=== PATIENT | male | born 1980 | race Caucasian/White ===

== ENCOUNTER 2016-11-23 04:11 | Inpatient (IN) | payer OTHER ==
[2016-11-23] VITALS (7 sets, daily range): BP systolic 105–128; BP diastolic 69–77; PULSE 77–97; TEMP 36.8–37.2; O2SAT 94–97; Ht 172.7 cm; Wt 77.0 kg
[~2016-11-23] VITALS: Ht 172.7 cm; Wt 77.0 kg
[~2016-11-23 04:11] MED LIST: CYAN1DRO SC; FURO-85 PO; LACT10SO30 PO; MAGNTAB4 PO; SERT25TA PO; SPRN100 PO; THM100 PO; XFX550 PO
[2016-11-23] MEDS ORDERED: RIFA550T2 PO ×2 (05:04→05:09)
[2016-11-23] MEDS ORDERED: FURO-85 PO (05:07)
[2016-11-23 05:09] LABS: URINE APPEARANCE CLEAR (CLEAR); URINE BILIRUBIN NEG (NEG); URINE COLOR YELLOW; URINE NITRITE NEG (NEG); URINE PH 7.5 (4.5-7.5); URINE SPECIFIC GRAVITY 1.013 (1.000-1.030); UROBILINOGEN NEG (NEG)
[2016-11-23] MEDS ORDERED: SLWMEC PO (05:09)
[2016-11-23 05:18] LABS: MANUAL MICROSCOPIC REQUIRED? NO; REVIEW REQ? NO
[2016-11-23 05:28] LABS: BENZODIAZEPINE, URINE NEG (NEG); COCAINE,URINE NEG (NEG); PHENCYCLIDINE, URINE NEG (NEG)
[2016-11-23] MEDS ORDERED: LORAZEPAM 1 MG TAB SL STA (05:29)
[2016-11-23 05:50] LABS: BUN/CREATININE RATIO 10.7 (10-20); CALCIUM 8.1 mg/dl (8.5-10.1); CREATININE 0.8 mg/dl (0.60-1.40); POTASSIUM 2.6 mmol/L (3.5-5.1)
[2016-11-23 05:53] LABS: HEMATOCRIT 35.3 % (42-52); MEAN CELL VOLUME 102.6 fL (80-100); MEAN CORPUSCULAR HEMOGLOBIN 34.3 pg (25-34); MEAN CORPUSCULAR HGB CONC 33.4 g/dl (32-36); MEAN PLATELET VOLUME 11.1 fL (7.4-10.4); PLATELET COUNT 75 K/uL (130-400); RED BLOOD COUNT 3.44 M/uL (4.7-6.1); WHITE BLOOD COUNT 6.32 K/uL (4.8-10.8)
[2016-11-23 06:05] LABS: THYROID STIMULATING HORMONE 4.03 uIu/ml (0.300-4.500)
[2016-11-23] MEDS ORDERED: POTASSIUM CHLORIDE 10 MEQ / 100ML WTR IV STA ×2 (07:08)
[2016-11-23 07:11] LABS: INR 1.5 (0.9-1.1); PROTHROMBIN TIME (PATIENT) 16.1 SECONDS (9.0-12.0)
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
[2016-11-23] MEDS ORDERED: ONDANSETRON INJ 2 MG/ML 2 ML VIAL IV PRN (08:00)
[2016-11-23] MEDS ORDERED: NITROGLYCERIN 0.4 MG SL PER TAB CHARGE SL PRN (08:00)
[2016-11-23] MEDS ORDERED: LORAZEPAM 2 MG/ML 1 ML VIAL IV PRN (08:15)
[2016-11-23] MEDS ORDERED: GABAPENTIN 600 MG TAB PO SCH (08:15)
--- NOTE | 2016-11-23 08:16 | History and Physical ---
History & Physical Date & Time of Service: Nov 23, 2016 at 08:16 Chief Complaint: Mental Health Eval Primary Care Physician: No Doctor, Assigned History of Present Illness Source: patient, hospital records This is a 36 yo M with hx of alcohol abuse , alcoholic liver disease , depression brought to ER by Police as made suicidal remarks -sent threatening text message to Girl Friend , messaged that he would like to kill himself , sent her picture of a knife pt has been drinking heavily past few day In the ER very few information could be obtained form him was very groggy , does not recall of making suicidal remarks does not remember when is the last time he had a drink pt alcohol level > 170 hypokalemic psych eval requested for depression /suicidal ideation Past Medical/Surgical History Medical Problems: (1) Alcohol abuse Status: Chronic (2) Alcohol abuse Status: Chronic (3) Anxiety Status: Chronic (4) Cirrhosis Status: Chronic (5) Depression Status: Chronic (6) Thrombocytopenia Status: Chronic (7) Tobacco abuse Status: Chronic Surgical Problems: (1) H/O wisdom tooth extraction Status: Resolved Family History Cancer Diabetes mellitus FH: kidney disease Heart disease Hypertension Social History Smoking Status: Current Every Day Smoker Drug Use: none Marital Status: single Housing status: other Occupational Status: unemployed Immunizations History of Influenza Vaccine: Unknown History of Tetanus Vaccine?: Unknown History of Pneumococcal: Unknown History of Hepatitis B Vaccine: Unknown Multi-Drug Resistant Organisms History of MDRO: Yes Type of MDRO: MRSA Allergies Coded Allergies: No Known Allergies (Unverified , 11/23/16) Home Medications Scheduled Furosemide (Lasix), 20 MG PO DAILY Magnesium Chloride (Slow-Mag Tab), 2 TABS PO DAILY Rifaximin (Xifaxan), 550 MG PO BID Review of Systems unable to obtain as pt kept dozing off Physical Exam Vital Signs Date Time Temp Pulse Resp B/P (MAP) Pulse Ox O2 Delivery O2 Flow Rate FiO2 11/23/16 08:01 90 16 102/68 94 Room Air 11/23/16 07:02 82 11/23/16 06:49 87 16 131/85 95 Room Air 11/23/16 05:25 78 20 110/68 98 Room Air 11/23/16 04:16 36.6 96 18 127/87 98 Room Air General Appearance: + pertinent finding (lethergic ) Eyes: + abnormal sclerae exam (icteric ) Respiratory/Chest: lungs clear, normal breath sounds, no respiratory distress Cardiovascular: + tachycardia Abdomen/GI: soft, + distended (+ ascities ) Extremities/Musculoskelatal: no pedal edema Neurologic/Psych: + disoriented Diagnostics Laboratory Results Results Past 24 Hours Test 11/23/16 04:20 11/23/16 05:05 11/23/16 07:59 Range/Units Urine Color YELLOW Urine Appearance CLEAR CLEAR Urine pH 7.5 4.5-7.5 Urine Specific [place] 1.013 1.000-1.030 Urine Protein NEG NEG Urine Glucose (UA) NEG NEG Urine Ketones NEG NEG Urine Occult Blood NEG NEG Urine Nitrite NEG NEG Urine Bilirubin NEG NEG Urine Urobilinogen NEG NEG Urine Leukocyte Esterase NEG NEG Urine Opiates Screen NEG NEG Urine Methadone, Qualitative NEG NEG Urine Barbiturates NEG NEG Urine Phencyclidine (PCP) Level NEG NEG Ur Amphetamine/Methamphetamine NEG NEG MDMA (Ecstasy) Screen NEG NEG Urine Benzodiazepines Screen NEG NEG Urine Cocaine Metabolite NEG NEG Urine Marijuana (THC) NEG NEG White Blood Count 6.32 4.8-10.8 K/uL Red Blood Count 3.44 4.7-6.1 M/uL Hemoglobin 11.8 14.0-18.0 g/dL Hematocrit 35.3 42-52 % Mean Corpuscular Volume 102.6 80-100 fL Mean Corpuscular Hemoglobin 34.3 25-34 pg Mean Corpuscular Hemoglobin Concent 33.4 32-36 g/dl RDW Standard Deviation 71.8 36.4-46.3 fL RDW Coefficient of Variation 19.2 11.5-14.5 % Platelet Count 75 130-400 K/uL Mean Platelet Volume 11.1 7.4-10.4 fL Prothrombin Time 16.1 9.0-12.0 SECONDS Prothromb Time International Ratio 1.5 0.9-1.1 Sodium Level 143 136-145 mmol/L Potassium Level 2.6 3.5-5.1 mmol/L Chloride Level 111 98-107 mmol/L Carbon Dioxide Level 25 21-32 mmol/L Anion Gap 7.0 3-11 mmol/L Blood Urea Nitrogen 9 7-18 mg/dl Creatinine 0.80 0.60-1.40 mg/dl Est Creatinine Clear Calc Drug Dose 123.5 ml/min Estimated GFR () 133.2 Estimated GFR (Non- 114.9 BUN/Creatinine Ratio 10.7 10-20 Random Glucose 103 70-99 mg/dl Calcium Level 8.1 8.5-10.1 mg/dl Magnesium Level 2.2 1.8-2.4 mg/dl Total Bilirubin 5.5 0.2-1 mg/dl Direct Bilirubin 4.3 0-0.2 mg/dl Aspartate Amino Transf (AST/SGOT) 90 15-37 U/L Alanine Aminotransferase (ALT/SGPT) 36 12-78 U/L Alkaline Phosphatase 252 45-117 U/L Total Protein 7.5 6.4-8.2 gm/dl Albumin 2.5 3.4-5.0 gm/dl Thyroid Stimulating Hormone (TSH) 4.030 0.300-4.500 uIu/ml Ethyl Alcohol mg/dL 172.0 0-3 mg/dl Diagnostic Radiology liver USG: IMPRESSION: 1. Cirrhosis. No hepatic lesions identified although sensitivity diminished given suboptimal penetration. 2. Reversal of flow within the main, left and right portal veins as well as the splenic vein consistent with portal hypertension. 3. Cholelithiasis. Borderline gallbladder wall thickening, a nonspecific finding. 4. Trace abdominal ascites. Impression Assessment and Plan ETOH ABUSE /INTOXICATION : presented with ETOH level > 170 reports of heavy drinking hx of long standing alcohol and poly substance abuse admit to tele ordered for thiamine , folic acid , banana bag cont with Neurontin /Ativan per ETOH withdrawal protocol monitor for severe withdrawal /DT SUICIDAL IDEATION /DEPRESSION : pt will put on q 15 min check with suicide precaution at present denies of any suicidal ideation denies of making threats to commit suicide to her girl friend Psych eval requested HYPOKALEMIA : ordered for replacement no reports for Vomiting or diarrhea ALCOHOLIC LIVER DISEASE no evidence of hepatic encephalopsy lethargy /increased somnolence possible due to alcohol intoxication cont on Rifaximin , Lasix ordered for lactulose GI eval requested FULL CODE DVT PROPHYLAXIS : scd and teds ambulate DISPOSITION : to be determined Level of Care Telemetry Resuscitation Status FULL RESUSCITATION VTE Prophylaxis VTE Risk Assessment Done? Y/N: Yes Risk Level: Moderate Given or contraindicated: T.E.D. Stockings, SCD's
[2016-11-23] MEDS ORDERED: THIAMINE HCL 100 MG TAB PO STA (09:53)
[2016-11-23] MEDS ORDERED: MULTI-VITAMIN INFUSION INJ 10 ML, THIAMINE HCL INJ 100 MG, FoLIC ACID INJ 1 MG in SODIU... IV ONE (10:00)
[2016-11-23] MEDS ORDERED: GABAPENTIN 1200MG LOADING DOSE PO SCH (10:00)
[2016-11-23] MEDS: LACTULOSE SYRUP 30 GM/45 ML UDP PO SCH ×3 (11:09→22:04)
[2016-11-23] MEDS: MAGNESIUM CHLORIDE 64MG DELAYED REL TAB PO SCH (11:09)
[2016-11-23] MEDS: RIFAXIMIN TAB 550 MG TAB PO SCH ×2 (11:09→22:00)
[2016-11-23] MEDS: FUROSEMIDE 20 MG TAB PO SCH (11:10)
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
--- NOTE | 2016-11-23 12:27 | DIAGNOSTIC IMAGING REPORT ---
ABDOMINAL ULTRASOUND, RIGHT UPPER QUADRANT HISTORY: Elevated bilirubin. COMPARISON: MRI of the liver October 25, 2015. FINDINGS: Coarsening of hepatic echotexture and nodularity of the liver surface is indicative of cirrhosis. No hepatic lesions are identified by sonography although sensitivity is diminished given suboptimal penetration. The pancreas is largely obscured. There is no biliary ductal dilatation. Note is made of reversal of flow within the main, left and right portal veins. There is also reversal flow within the splenic vein. There are gallstones within the gallbladder. Trace upper abdominal is noted. There is borderline gallbladder wall thickening. There is no right hydronephrosis. IMPRESSION: 1. Cirrhosis. No hepatic lesions identified although sensitivity diminished given suboptimal penetration. 2. Reversal of flow within the main, left and right portal veins as well as the splenic vein consistent with portal hypertension. 3. Cholelithiasis. Borderline gallbladder wall thickening, a nonspecific finding. 4. Trace abdominal ascites. Electronically signed by: Bryn Root M.D. 11/23/2016 12:26 PM Dictated Date/Time: 11/23/2016 12:22 PM
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
[2016-11-23 14:36] LABS: BUN/CREATININE RATIO 8.2 (10-20); CREATININE 0.8 mg/dl (0.60-1.40); POTASSIUM 2.7 mmol/L (3.5-5.1)
[2016-11-23] MEDS: GABAPENTIN 600MG Q6H DOSE PO SCH ×2 (16:31→22:01)
[2016-11-23] MEDS ORDERED: POTASSIUM CHLORIDE 10 MEQ TABCR PO STA (17:41)
[2016-11-23] MEDS: POTASSIUM CHLR 10 MEQ / WTR 10 MEQ in PREMIXED WATER 100 ML IV SCH ×2 (18:19→19:33)
[2016-11-23] MEDS: CARVEDILOL 6.25 MG TAB PO SCH (22:01)
[2016-11-23 23:20] LABS: BUN/CREATININE RATIO 6.8 (10-20); CALCIUM 7.9 mg/dl (8.5-10.1); CREATININE 1.1 mg/dl (0.60-1.40)
[2016-11-24] MEDS ORDERED: POTASSIUM CHLORIDE 20 MEQ TABCR PO STA ×2 (00:04→11:45)
[2016-11-24 00:09] VITALS: BP 126/83; PULSE 81; TEMP 37.2; O2SAT 98
[2016-11-24 04:00] VITALS: BP 116/75; PULSE 84; TEMP 37.3; O2SAT 95
[2016-11-24] MEDS: LEVOTHYROXINE 75 MCG TAB PO SCH (05:47)
[2016-11-24] MEDS: GABAPENTIN 600MG Q8H DOSE PO SCH ×3 (05:47→21:57)
[2016-11-24 07:24] VITALS: BP 116/74; PULSE 82; TEMP 37.3; O2SAT 95
[2016-11-24 07:41] LABS: HEMATOCRIT 32.6 % (42-52); MEAN CELL VOLUME 103.2 fL (80-100); MEAN CORPUSCULAR HEMOGLOBIN 35.1 pg (25-34); RED BLOOD COUNT 3.16 M/uL (4.7-6.1); WHITE BLOOD COUNT 5.75 K/uL (4.8-10.8)
[2016-11-24 07:42] LABS: MEAN PLATELET VOLUME 10.8 fL (7.4-10.4); PLATELET COUNT 59 K/uL (130-400)
[2016-11-24 07:51] LABS: INR 1.5 (0.9-1.1); PROTHROMBIN TIME (PATIENT) 16.5 SECONDS (9.0-12.0)
[2016-11-24 08:14] LABS: BUN/CREATININE RATIO 7.8 (10-20); CALCIUM 7.9 mg/dl (8.5-10.1); CREATININE 0.91 mg/dl (0.60-1.40); MAGNESIUM 1.8 mg/dl (1.8-2.4); POTASSIUM 2.9 mmol/L (3.5-5.1)
[2016-11-24] MEDS: THIAMINE HCL 100 MG TAB PO SCH (08:58)
[2016-11-24] MEDS: POTASSIUM CHLORIDE 20 MEQ TABCR PO SCH (08:58)
[2016-11-24] MEDS: LACTULOSE SYRUP 30 GM/45 ML UDP PO SCH ×3 (08:58→21:56)
[2016-11-24] MEDS: RIFAXIMIN TAB 550 MG TAB PO SCH ×2 (08:58→21:57)
[2016-11-24] MEDS: CARVEDILOL 6.25 MG TAB PO SCH ×2 (08:58→21:58)
[2016-11-24] MEDS: MAGNESIUM CHLORIDE 64MG DELAYED REL TAB PO SCH (10:15)
[2016-11-24] MEDS: FUROSEMIDE 20 MG TAB PO SCH (10:15)
[2016-11-24 11:36] VITALS: BP 109/71; PULSE 76; TEMP 37.1; O2SAT 94
[2016-11-24] MEDS: POTASSIUM CHLR 10 MEQ / WTR 10 MEQ in PREMIXED WATER 100 ML IV SCH ×2 (12:23→13:49)
[2016-11-24 13:12] LABS: REFERENCE QUEST TEST REPORT
[2016-11-24 14:26] VITALS: BP 120/80; PULSE 74; TEMP 37; O2SAT 96
[2016-11-24 14:51] LABS: BUN/CREATININE RATIO 6.9 (10-20); CALCIUM 8.2 mg/dl (8.5-10.1); CREATININE 0.99 mg/dl (0.60-1.40); MAGNESIUM 1.8 mg/dl (1.8-2.4); POTASSIUM 3.3 mmol/L (3.5-5.1)
[2016-11-24] MEDS ORDERED: POTASSIUM CHLORIDE 10 MEQ TABCR PO ONE (16:30)
--- NOTE | 2016-11-24 19:45 | Progress Note ---
Internal Med Progress Note Date of Service: Nov 24, 2016. Provider Documentation: SUBJECTIVE: awake and alert offers no complain , denies of any thought of suicide , feels fine Does not recall messaging her girlfriend with treat to commit suicide no complain of anxiety no tremor noted in out stretched hands OBJECTIVE: Vital Signs-as noted below Exam: General-no sign of distress , conversing appropriately Eyes-sclera icteric ENT-NAd Neck-no JVD Lungs-CTA Heart-regular S1/S2 Abdomen-distended /+ ascites Extremities-no lower ext edema Neuro-AAO x3, no focal deficit Lab data as noted below. ASSESSMENT & PLAN: ETOH ABUSE /INTOXICATION : presented with ETOH level > 170 reports of heavy drinking hx of long standing alcohol and poly substance abuse no sign of withdrawal so far on for thiamine , folic acid , given IV banana bag cont with Neurontin /Ativan per ETOH withdrawal protocol in tele SUICIDAL IDEATION /DEPRESSION : at present denies any suicidal ideation or depression denies of making threats to commit suicide to her girl friend mentions he was mad at her Girl Friend Psych eval requested -pt is not interested to going to inpatient Psych unit does not want to start on SSRI has appointment scheduled with Counselling service at [facility] wants to follow up with counsellor and start with SSRI with [facility] Psychiatrist HYPOKALEMIA : continue replacement ALCOHOLIC LIVER DISEASE no evidence of hepatic encephalopsy lethargy /increased somnolence possible due to alcohol intoxication cont on Rifaximin , Lasix ordered for lactulose GI eval requested -appreciate input stable for chronic liver disease stand point pt is counselled for absolute alcohol abstinence FULL CODE DVT PROPHYLAXIS : scd and teds ambulate DISPOSITION : refused to be admitted to in patient Psych does not meet criteria for involuntary commitment per Psych cont to monitor in Tele for ETOH with drawl expected to be discharged home with out pt Psych follow up Vital Signs: Date Time Temp Pulse Resp B/P (MAP) Pulse Ox O2 Delivery O2 Flow Rate FiO2 11/24/16 16:21 Room Air 11/24/16 14:26 37.0 74 18 120/80 (93) 96 Room Air 11/24/16 12:09 Room Air 11/24/16 11:36 37.1 76 20 109/71 (84) 94 Room Air 11/24/16 08:40 Room Air 11/24/16 07:24 37.3 82 18 116/74 (88) 95 Room Air 11/24/16 04:00 Room Air 11/24/16 04:00 37.3 84 18 116/75 (89) 95 11/24/16 00:09 37.2 81 18 126/83 (97) 98 11/24/16 00:00 Room Air Lab Results: Results Past 24 Hours Test 11/23/16 22:31 11/24/16 07:12 11/24/16 14:09 Range/Units Sodium Level 142 140 138 136-145 mmol/L Potassium Level 3.0 2.9 3.3 3.5-5.1 mmol/L Chloride Level 110 109 108 98-107 mmol/L Carbon Dioxide Level 27 23 24 21-32 mmol/L Anion Gap 5.0 8.0 6.0 3-11 mmol/L Blood Urea Nitrogen 8 7 7 7-18 mg/dl Creatinine 1.10 0.91 0.99 0.60-1.40 mg/dl Est Creatinine Clear Calc Drug Dose 89.8 108.5 99.8 ml/min Estimated GFR () 99.6 125.2 113.1 Estimated GFR (Non- 85.9 108.0 97.6 BUN/Creatinine Ratio 6.8 7.8 6.9 10-20 Random Glucose 87 87 111 70-99 mg/dl Calcium Level 7.9 7.9 8.2 8.5-10.1 mg/dl White Blood Count 5.75 4.8-10.8 K/uL Red Blood Count 3.16 4.7-6.1 M/uL Hemoglobin 11.1 14.0-18.0 g/dL Hematocrit 32.6 42-52 % Mean Corpuscular Volume 103.2 80-100 fL Mean Corpuscular Hemoglobin 35.1 25-34 pg Mean Corpuscular Hemoglobin Concent 34.0 32-36 g/dl RDW Standard Deviation 71.5 36.4-46.3 fL RDW Coefficient of Variation 18.8 11.5-14.5 % Platelet Count 59 130-400 K/uL Mean Platelet Volume 10.8 7.4-10.4 fL Prothrombin Time 16.5 9.0-12.0 SECONDS Prothromb Time International Ratio 1.5 0.9-1.1 Magnesium Level 1.8 1.8 1.8-2.4 mg/dl Total Bilirubin 5.4 0.2-1 mg/dl Direct Bilirubin 3.9 0-0.2 mg/dl Aspartate Amino Transf (AST/SGOT) 79 15-37 U/L Alanine Aminotransferase (ALT/SGPT) 28 12-78 U/L Alkaline Phosphatase 205 45-117 U/L Total Protein 6.5 6.4-8.2 gm/dl Albumin 2.2 3.4-5.0 gm/dl Ammonia 95.0 11-32 umol/L
[2016-11-24 19:57] VITALS: BP 114/73; PULSE 79; TEMP 36.9; O2SAT 98
[2016-11-25 00:09] VITALS: BP 123/82; PULSE 75; TEMP 37.1; O2SAT 99
[2016-11-25 05:19] VITALS: BP 107/69; PULSE 84; TEMP 37.4; O2SAT 97
[2016-11-25] MEDS: LEVOTHYROXINE 75 MCG TAB PO SCH (06:27)
[2016-11-25 07:34] VITALS: BP 113/71; PULSE 78; TEMP 37.3; O2SAT 97
[2016-11-25 08:04] LABS: HEMATOCRIT 32.2 % (42-52); MEAN CELL VOLUME 103.5 fL (80-100); MEAN CORPUSCULAR HEMOGLOBIN 35.4 pg (25-34); MEAN CORPUSCULAR HGB CONC 34.2 g/dl (32-36); RED BLOOD COUNT 3.11 M/uL (4.7-6.1); WHITE BLOOD COUNT 5.81 K/uL (4.8-10.8)
[2016-11-25 08:09] LABS: MEAN PLATELET VOLUME 11.6 fL (7.4-10.4); PLATELET COUNT 56 K/uL (130-400)
[2016-11-25 08:13] LABS: BUN/CREATININE RATIO 9.2 (10-20); CALCIUM 8.2 mg/dl (8.5-10.1); CREATININE 0.87 mg/dl (0.60-1.40); MAGNESIUM 1.8 mg/dl (1.8-2.4); POTASSIUM 3.1 mmol/L (3.5-5.1)
[2016-11-25] MEDS: LACTULOSE SYRUP 30 GM/45 ML UDP PO SCH ×3 (08:13→21:07)
[2016-11-25] MEDS: THIAMINE HCL 100 MG TAB PO SCH (08:14)
[2016-11-25] MEDS: CARVEDILOL 6.25 MG TAB PO SCH ×2 (08:14→21:09)
[2016-11-25] MEDS: FUROSEMIDE 20 MG TAB PO SCH (08:15)
[2016-11-25] MEDS: POTASSIUM CHLORIDE 20 MEQ TABCR PO SCH (08:15)
[2016-11-25] MEDS: RIFAXIMIN TAB 550 MG TAB PO SCH ×2 (08:16→21:09)
[2016-11-25] MEDS: MAGNESIUM CHLORIDE 64MG DELAYED REL TAB PO SCH (08:16)
[2016-11-25] MEDS ORDERED: POTASSIUM CHLORIDE 20 MEQ TABCR PO ONE (08:45)
[2016-11-25] MEDS: GABAPENTIN 600MG Q12H DOSE PO SCH ×2 (10:00→21:10)
[2016-11-25 11:24] VITALS: BP 111/68; PULSE 76; TEMP 37.2; O2SAT 97
[2016-11-25 15:52] VITALS: BP 107/69; PULSE 73; TEMP 37.1; O2SAT 99
--- NOTE | 2016-11-25 17:42 | Progress Note ---
Medicine Progress Note Date & Time of Visit: Nov 25, 2016 at 17:29. Subjective Pt was seen and examined Lying in bed comfortable with no distress Pt said that he feels fine He denies any sign of alcohol withdrawn Denies any chest pain, palpitation, dizziness and sob Objective Last 8 Hrs Date Time Temp Pulse Resp B/P (MAP) Pulse Ox O2 Delivery O2 Flow Rate FiO2 11/25/16 16:00 Room Air 11/25/16 15:52 37.1 73 18 107/69 (82) 99 Room Air 11/25/16 12:00 Room Air 11/25/16 11:24 37.2 76 18 111/68 (82) 97 Room Air Physical Exam: General- No acute distress Head- atraumatic Eyes- PERRL, EOMI ENT- oropharynx clear Neck- supple, no JVD Lungs- clear to auscultation Heart- regular rhythm Abdomen- normal bowel sounds, soft, +ascites Extremities- no calf tenderness Neuro- alert, oriented; PERRL, EOMI; Skin- warm & dry Laboratory Results: Last 24 Hours Test 11/25/16 07:17 White Blood Count 5.81 K/uL Red Blood Count 3.11 M/uL Hemoglobin 11.0 g/dL Hematocrit 32.2 % Mean Corpuscular Volume 103.5 fL Mean Corpuscular Hemoglobin 35.4 pg Mean Corpuscular Hemoglobin Concent 34.2 g/dl RDW Standard Deviation 67.1 fL RDW Coefficient of Variation 18.0 % Platelet Count 56 K/uL Mean Platelet Volume 11.6 fL Sodium Level 140 mmol/L Potassium Level 3.1 mmol/L Chloride Level 110 mmol/L Carbon Dioxide Level 21 mmol/L Anion Gap 8.0 mmol/L Blood Urea Nitrogen 8 mg/dl Creatinine 0.87 mg/dl Est Creatinine Clear Calc Drug Dose 113.5 ml/min Estimated GFR () 128.7 Estimated GFR (Non- 111.0 BUN/Creatinine Ratio 9.2 Random Glucose 93 mg/dl Calcium Level 8.2 mg/dl Magnesium Level 1.8 mg/dl Total Bilirubin 5.1 mg/dl Direct Bilirubin 3.9 mg/dl Aspartate Amino Transf (AST/SGOT) 63 U/L Alanine Aminotransferase (ALT/SGPT) 24 U/L Alkaline Phosphatase 183 U/L Total Protein 6.4 gm/dl Albumin 2.1 gm/dl Assessment & Plan ETOH ABUSE /INTOXICATION : ETOH level > 170 on admission no sign of withdrawal so far Continue thiamine , folic acid cont with Neurontin /Ativan per ETOH withdrawal protocol continue monitor Refused to go to Alcohol rehab SUICIDAL IDEATION /DEPRESSION Denies any suicidal thought denies of making threats to commit suicide to her girl friend mentions he was mad at her girlfriend Psych on board Pt not interested to inpatient psych treatment has appointment scheduled with Counselling service at [facility] Agreed to start on low dose SSRI after discussing it with him wants to follow up with counsellor and start with SSRI with [facility] Psychiatrist HYPOKALEMIA : Replaced Continue monitor BMP ALCOHOLIC LIVER DISEASE no evidence of hepatic encephalopathy cont on Rifaximin , Lasix, lactulose GI eval on board stable for chronic liver disease stand point pt is counselled for absolute alcohol abstinence FULL CODE DVT PROPHYLAXIS : scd and teds ambulate DISPOSITION Refused in patient Psych Refused alcohol rehab does not meet criteria for involuntary commitment per Psych Discharge home tomorrow Current Inpatient Medications: Current Inpatient Medications Medications (Trade) Dose Ordered Sig/Ursula Route Start Time Stop Time Status Last Admin Dose Admin Furosemide (Lasix Tab) 20 mg DAILY PO 11/23/16 09:00 12/23/16 08:59 11/25/16 08:15 20 MG Magnesium Chloride (Slow-Mag Tab) 128 mg DAILY PO 11/23/16 09:00 12/23/16 08:59 11/25/16 08:16 128 MG Rifaximin (Xifaxan Tab) 550 mg BID PO 11/23/16 09:00 12/23/16 08:59 11/25/16 08:16 550 MG Ondansetron HCl (Zofran Inj) 4 mg Q6H PRN IV 11/23/16 08:00 12/23/16 07:59 Nitroglycerin (Nitrostat Tab) 0.4 mg UD PRN SL 11/23/16 08:00 12/23/16 07:59 Lorazepam (Ativan Inj) PRN Dosing -Active Protocol Q1H PRN IV 11/23/16 08:15 12/23/16 08:14 Lactulose (Chronulac Syrup) 30 gm TID PO 11/23/16 09:15 12/23/16 09:14 11/25/16 13:49 30 GM Levothyroxine Sodium (Synthroid Tab) 75 mcg DAILYBB PO 11/24/16 06:30 12/24/16 06:59 11/25/16 06:27 75 MCG Carvedilol (Coreg Tab) 6.25 mg BID PO 11/23/16 21:00 12/23/16 20:59 11/25/16 08:14 6.25 MG Folic Acid (Folvite Tab) 1 mg QAM PO 11/24/16 09:00 12/24/16 08:59 11/25/16 08:16 1 MG Thiamine HCl (Vitamin B-1 Tab) 100 mg QAM PO 11/24/16 09:00 12/24/16 08:59 11/25/16 08:14 100 MG Gabapentin (Neurontin Tab) 600 mg Q12H PO 11/25/16 10:00 11/25/16 22:01 11/25/16 10:00 600 MG Gabapentin (Neurontin Tab) 600 mg Q24H PO 11/26/16 22:00 11/26/16 22:01 Potassium Chloride (Klor-Con Tab) 20 meq QAM PO 11/24/16 09:00 12/24/16 08:59 11/25/16 08:15 20 MEQ
[2016-11-25 20:15] VITALS: BP 115/77; PULSE 76; TEMP 37.2; O2SAT 98
[2016-11-26] VITALS (8 sets, daily range): BP systolic 104–133; BP diastolic 67–82; PULSE 67–78; TEMP 36.9–37.4; O2SAT 96–99
[2016-11-26] MEDS: LEVOTHYROXINE 75 MCG TAB PO SCH (06:22)
[2016-11-26 07:16] LABS: HEMATOCRIT 33.8 % (42-52); MEAN CORPUSCULAR HEMOGLOBIN 34.8 pg (25-34); MEAN CORPUSCULAR HGB CONC 33.4 g/dl (32-36); RED BLOOD COUNT 3.25 M/uL (4.7-6.1); WHITE BLOOD COUNT 5.75 K/uL (4.8-10.8)
[2016-11-26 07:19] LABS: MEAN PLATELET VOLUME 11.8 fL (7.4-10.4); PLATELET COUNT 70 K/uL (130-400)
[2016-11-26 07:42] LABS: BUN/CREATININE RATIO 9.9 (10-20); CALCIUM 8.2 mg/dl (8.5-10.1); CREATININE 0.93 mg/dl (0.60-1.40); MAGNESIUM 1.8 mg/dl (1.8-2.4); POTASSIUM 3.3 mmol/L (3.5-5.1)
[2016-11-26] MEDS: RIFAXIMIN TAB 550 MG TAB PO SCH (08:38)
[2016-11-26] MEDS: POTASSIUM CHLORIDE 20 MEQ TABCR PO SCH (08:38)
[2016-11-26] MEDS: LACTULOSE SYRUP 30 GM/45 ML UDP PO SCH ×2 (08:38→14:11)
[2016-11-26] MEDS: CARVEDILOL 6.25 MG TAB PO SCH (08:38)
[2016-11-26] MEDS: FUROSEMIDE 20 MG TAB PO SCH (08:39)
[2016-11-26] MEDS: MAGNESIUM CHLORIDE 64MG DELAYED REL TAB PO SCH (08:39)
[2016-11-26] MEDS: THIAMINE HCL 100 MG TAB PO SCH (08:39)
[2016-11-26] MEDS ORDERED: SERTRALINE HCL 50 MG TAB PO SCH (09:00)
[2016-11-26] MEDS ORDERED: POTASSIUM CHLORIDE 20 MEQ TABCR PO ONE (15:15)
--- NOTE | 2016-11-26 16:05 | Progress Note ---
Medicine Progress Note Date & Time of Visit: Nov 26, 2016 at 16:01. Subjective Pt was seen and examined Lying in bed with no distress pt said that he feels fine denies any chest pain, palpitation, dizziness and SOB Objective Last 8 Hrs Date Time Temp Pulse Resp B/P (MAP) Pulse Ox O2 Delivery O2 Flow Rate FiO2 11/26/16 15:08 36.9 68 18 104/67 (79) 97 Room Air 11/26/16 12:00 98 Room Air 11/26/16 11:14 37.0 78 18 107/68 (81) 98 Room Air Physical Exam: General- No acute distress Head- atraumatic Eyes- PERRL, EOMI ENT- oropharynx clear Neck- supple, no JVD Lungs- clear to auscultation Heart- regular rhythm Abdomen- normal bowel sounds, soft Extremities- no calf tenderness Neuro- alert, oriented; PERRL, EOMI; Skin- warm & dry Laboratory Results: Last 24 Hours Test 11/26/16 06:58 White Blood Count 5.75 K/uL Red Blood Count 3.25 M/uL Hemoglobin 11.3 g/dL Hematocrit 33.8 % Mean Corpuscular Volume 104.0 fL Mean Corpuscular Hemoglobin 34.8 pg Mean Corpuscular Hemoglobin Concent 33.4 g/dl RDW Standard Deviation 65.8 fL RDW Coefficient of Variation 17.4 % Platelet Count 70 K/uL Mean Platelet Volume 11.8 fL Sodium Level 140 mmol/L Potassium Level 3.3 mmol/L Chloride Level 109 mmol/L Carbon Dioxide Level 23 mmol/L Anion Gap 8.0 mmol/L Blood Urea Nitrogen 9 mg/dl Creatinine 0.93 mg/dl Est Creatinine Clear Calc Drug Dose 106.2 ml/min Estimated GFR () 122.0 Estimated GFR (Non- 105.2 BUN/Creatinine Ratio 9.9 Random Glucose 82 mg/dl Calcium Level 8.2 mg/dl Magnesium Level 1.8 mg/dl Total Bilirubin 5.7 mg/dl Direct Bilirubin 3.8 mg/dl Aspartate Amino Transf (AST/SGOT) 61 U/L Alanine Aminotransferase (ALT/SGPT) 24 U/L Alkaline Phosphatase 176 U/L Total Protein 6.7 gm/dl Albumin 2.2 gm/dl Assessment & Plan ETOH ABUSE /INTOXICATION : ETOH level > 170 on admission no sign of withdrawal so far Continue thiamine , folic acid cont with Neurontin /Ativan per ETOH withdrawal protocol continue monitor Refused to go to Alcohol rehab stable SUICIDAL IDEATION /DEPRESSION Denies any suicidal thought denies of making threats to commit suicide to her girl friend mentions he was mad at her girlfriend Psych on board Pt not interested to inpatient psych treatment has appointment scheduled with Counselling service at [facility] Agreed to start on low dose SSRI after discussing it with him wants to follow up with counsellor and start with SSRI with [facility] Psychiatrist Zoloft was started after major side effect discussed with patient continue zoloft HYPOKALEMIA : Replaced Continue monitor BMP ALCOHOLIC LIVER DISEASE no evidence of hepatic encephalopathy cont on Rifaximin , Lasix, lactulose GI eval on board stable for chronic liver disease stand point pt is counselled for absolute alcohol abstinence FULL CODE DVT PROPHYLAXIS : scd and teds ambulate DISPOSITION Refused in patient Psych Refused alcohol rehab does not meet criteria for involuntary commitment per Psych Follow up with your primary care provider Dr. Fernando on 11/30 @ 11 am Consultants: Psych Current Inpatient Medications: Current Inpatient Medications Medications (Trade) Dose Ordered Sig/Ursula Route Start Time Stop Time Status Last Admin Dose Admin Furosemide (Lasix Tab) 20 mg DAILY PO 11/23/16 09:00 12/23/16 08:59 11/26/16 08:39 20 MG Magnesium Chloride (Slow-Mag Tab) 128 mg DAILY PO 11/23/16 09:00 12/23/16 08:59 11/26/16 08:39 128 MG Rifaximin (Xifaxan Tab) 550 mg BID PO 11/23/16 09:00 12/23/16 08:59 11/26/16 08:38 550 MG Ondansetron HCl (Zofran Inj) 4 mg Q6H PRN IV 11/23/16 08:00 12/23/16 07:59 Nitroglycerin (Nitrostat Tab) 0.4 mg UD PRN SL 11/23/16 08:00 12/23/16 07:59 Lorazepam (Ativan Inj) PRN Dosing -Active Protocol Q1H PRN IV 11/23/16 08:15 12/23/16 08:14 Lactulose (Chronulac Syrup) 30 gm TID PO 11/23/16 09:15 12/23/16 09:14 11/26/16 14:11 30 GM Levothyroxine Sodium (Synthroid Tab) 75 mcg DAILYBB PO 11/24/16 06:30 12/24/16 06:59 11/26/16 06:22 75 MCG Carvedilol (Coreg Tab) 6.25 mg BID PO 11/23/16 21:00 12/23/16 20:59 11/26/16 08:38 6.25 MG Folic Acid (Folvite Tab) 1 mg QAM PO 11/24/16 09:00 12/24/16 08:59 11/26/16 08:38 1 MG Thiamine HCl (Vitamin B-1 Tab) 100 mg QAM PO 11/24/16 09:00 12/24/16 08:59 11/26/16 08:39 100 MG Gabapentin (Neurontin Tab) 600 mg Q24H PO 11/26/16 22:00 11/26/16 22:01 Potassium Chloride (Klor-Con Tab) 20 meq QAM PO 11/24/16 09:00 12/24/16 08:59 11/26/16 08:38 20 MEQ Sertraline HCl (Zoloft Tab) 25 mg QAM PO 11/26/16 09:00 12/26/16 08:59 11/26/16 08:40 25 MG
[2016-11-26] MEDS ORDERED: OMEP40CA41 PO (16:32)
[2016-11-26] MEDS ORDERED: THM100 PO (16:32)
[2016-11-26] MEDS ORDERED: CARV6.252 PO (16:32)
[2016-11-26] MEDS ORDERED: LEVO75TA5 PO (16:32)
[2016-11-26] MEDS ORDERED: LACT10SO30 PO (16:32)
[2016-11-26] MEDS ORDERED: MCRK20 PO (16:37)
[2016-11-26] MEDS ORDERED: ZLF50 PO (16:37)
[2016-11-26] MEDS ORDERED: FLV1 PO (16:37)
--- NOTE | 2016-11-26 16:46 | Discharge Instructions ---
Discharge Instructions Date of Service Nov 26, 2016. Admission Reason for Admission: Hypokalemia Discharge Discharge Diagnosis / Problem: ETOH ABUSE /INTOXICATION/ DEPRESSION/ HYPOKALEMIA Discharge Goals Goal(s): Decrease discomfort, Improve function, Improve disease control Activity Recommendations Activity Limitations: resume your previous activity ( TOLERATED) . Instructions / Follow-Up Instructions / Follow-Up Follow up with your primary care provider Dr. Fernando on 11/30 @ 11am Follow up with psych ( already has appointment schedule as per patient) Counseling on alcohol cessation Counseling on tobacco use Check BMP within 1 week seek medical attention if you develop any hallucination, suicide thought or psychosis Current Hospital Diet Patient's current hospital diet: Low Sodium Diet (2gm Na) Pending Studies Studies pending at discharge: no Medical Emergencies . Who to Call and When: Medical Emergencies: If at any time you feel your situation is an emergency, please call 911 immediately. . Non-Emergent Contact Non-Emergency issues call your: Primary Care Provider Call Non-Emergent contact if: you have any medication questions . . "Provider Documentation" section prepared by Analisa Benito. . VTE Core Measure Inpt VTE Proph given/why not?: Vaughn Hanna, SCD's
[2016-11-26] MEDS ORDERED: GABAPENTIN 600MG X1 DOSE PO SCH (22:00)
--- NOTE | 2016-11-28 23:25 | Discharge Summary ---
Discharge Summary Date of Service Nov 28, 2016. Discharge Summary Admission Date: Nov 23, 2016 at 06:43 Discharge Date: Nov 26, 2016 Discharge Disposition: Home Principal Diagnosis: ETOH ABUSE Secondary Diagnoses/Problems: INTOXICATION DEPRESSION HYPOKALEMIA SUICIDAL IDEATION DEPRESSION ALCOHOLIC LIVER DISEASE Procedures: ABDOMINAL ULTRASOUND, RIGHT UPPER QUADRANT HISTORY: Elevated bilirubin. COMPARISON: MRI of the liver October 25, 2015. FINDINGS: Coarsening of hepatic echotexture and nodularity of the liver surface is indicative of cirrhosis. No hepatic lesions are identified by sonography although sensitivity is diminished given suboptimal penetration. The pancreas is largely obscured. There is no biliary ductal dilatation. Note is made of reversal of flow within the main, left and right portal veins. There is also reversal flow within the splenic vein. There are gallstones within the gallbladder. Trace upper abdominal is noted. There is borderline gallbladder wall thickening. There is no right hydronephrosis. IMPRESSION: 1. Cirrhosis. No hepatic lesions identified although sensitivity diminished given suboptimal penetration. 2. Reversal of flow within the main, left and right portal veins as well as the splenic vein consistent with portal hypertension. 3. Cholelithiasis. Borderline gallbladder wall thickening, a nonspecific finding. 4. Trace abdominal ascites. Electronically signed by: Bryn Root M.D. 11/23/2016 12:26 PM Dictated Date/Time: 11/23/2016 12:22 PM Consultations: Psych Medication Reconciliation New Medications: Folic Acid (Folic Acid) 1 Mg Tab 1 MG PO QAM for 30 Days, #30 TAB Potassium Chloride (Klor-Con M20) 20 Meq Tabcr 20 MEQ PO QAM for 30 Days Sertraline HCl (Sertraline HCl) 50 Mg Tab 25 MG PO QAM for 30 Days, #15 TAB Continued Medications: Carvedilol (Coreg) 6.25 Mg Tab 1 TAB PO DAILY, TAB 1 Refill Furosemide (Lasix) 20 Mg Tab 20 MG PO DAILY, TAB Lactulose (Encephalopathy) (Lactulose) 10 Gm/15 Ml Hallie 45 GM PO TID, ML Take 45 ml three times daily and may skip dose if more then 3 BM's a day. Levothyroxine Sodium (Levothyroxine Sodium) 75 Mcg Tab 1 TAB PO DAILY for 30 Days, #30 TAB 5 Refills Magnesium Chloride (Slow-Mag Tab) 64 Mg Tabcr 2 TABS PO DAILY, TAB Omeprazole (Prilosec) 40 Mg Cap 40 MG PO DAILY, CAP Rifaximin (Xifaxan) 550 Mg Tab 550 MG PO BID, TAB Thiamine HCl (Vitamin B-1) 100 Mg Tab 100 MG PO DAILY, TAB Admission Information HPI (per Admitting provider): This is a 36 yo M with hx of alcohol abuse , alcoholic liver disease , depression brought to ER by Police as made suicidal remarks -sent threatening text message to Girl Friend , messaged that he would like to kill himself , sent her picture of a knife pt has been drinking heavily past few day In the ER very few information could be obtained form him was very groggy , does not recall of making suicidal remarks does not remember when is the last time he had a drink pt alcohol level > 170 hypokalemic psych eval requested for depression /suicidal ideation Physical Exam (per Admitting): General Appearance: + pertinent finding (lethergic ) Eyes: + abnormal sclerae exam (icteric ) Respiratory/Chest: lungs clear, normal breath sounds, no respiratory distress Cardiovascular: + tachycardia Abdomen/GI: soft, + distended (+ ascities ) Extremities/Musculoskelatal: no pedal edema Neurologic/Psych: + disoriented Hospital Course ETOH ABUSE /INTOXICATION : ETOH level > 170 on admission no sign of withdrawal so far Continue thiamine , folic acid cont with Neurontin /Ativan per ETOH withdrawal protocol continue monitor Refused to go to Alcohol rehab stable SUICIDAL IDEATION /DEPRESSION Denies any suicidal thought denies of making threats to commit suicide to her girl friend mentions he was mad at her girlfriend Psych on board Pt not interested to inpatient psych treatment has appointment scheduled with Counselling service at [facility] Agreed to start on low dose SSRI after discussing it with him wants to follow up with counsellor and start with SSRI with [facility] Psychiatrist Zoloft was started after major side effect discussed with patient continue zoloft HYPOKALEMIA : Replaced Continue monitor BMP ALCOHOLIC LIVER DISEASE no evidence of hepatic encephalopathy cont on Rifaximin , Lasix, lactulose GI eval on board stable for chronic liver disease stand point pt is counselled for absolute alcohol abstinence FULL CODE DVT PROPHYLAXIS : scd and teds ambulate DISPOSITION Refused in patient Psych Refused alcohol rehab does not meet criteria for involuntary commitment per Psych Follow up with your primary care provider Dr. Fernando on 11/30 @ 11 am Total time spent on discharge = 35 MINUTES This includes examination of the patient, discharge planning, medication reconciliation, and communication with other providers. Discharge Instructions Discharge Instructions Date of Service Nov 26, 2016. Admission Reason for Admission: Hypokalemia Discharge Discharge Diagnosis / Problem: ETOH ABUSE /INTOXICATION/ DEPRESSION/ HYPOKALEMIA Discharge Goals Goal(s): Decrease discomfort, Improve function, Improve disease control Activity Recommendations Activity Limitations: resume your previous activity ( TOLERATED) . Instructions / Follow-Up Instructions / Follow-Up Follow up with your primary care provider Dr. Fernando on 11/30 @ 11am Follow up with psych ( already has appointment schedule as per patient) Counseling on alcohol cessation Counseling on tobacco use Check BMP within 1 week seek medical attention if you develop any hallucination, suicide thought or psychosis Current Hospital Diet Patient's current hospital diet: Low Sodium Diet (2gm Na) Pending Studies Studies pending at discharge: no Medical Emergencies . Who to Call and When: Medical Emergencies: If at any time you feel your situation is an emergency, please call 911 immediately. . Non-Emergent Contact Non-Emergency issues call your: Primary Care Provider Call Non-Emergent contact if: you have any medication questions . . "Provider Documentation" section prepared by Analisa Benito. . VTE Core Measure Inpt VTE Proph given/why not?: Vaughn Hanna, SCD's Additional Copies To Porfirio Fernando M.D.(RAQUEL)
== END 2016-11-26 17:29 | disposition home or self-care (01) | DRG 897 ==
LOC: C.EDB 04:12 → C.MED 06:43 → ENRESERV 08:44
PROVIDERS: ADMIT Hospitalist; ATTEND Internal Medicine
DX: F10.129 Alcohol abuse with intoxication, unspecified (principal); R45.851 Suicidal ideations; F41.9 Anxiety disorder, unspecified; F32.9 Major depressive disorder, single episode, unspecified; F17.200 Nicotine dependence, unspecified, uncomplicated; E87.6 Hypokalemia; K70.30 Alcoholic cirrhosis of liver without ascites; K80.20 Calculus of gallbladder without cholecystitis without obstruction; K70.0 Alcoholic fatty liver; Z80.9 Family history of malignant neoplasm, unspecified; Z83.3 Family history of diabetes mellitus; Z84.1 Family history of disorders of kidney and ureter; Z82.49 Family history of ischemic heart disease and other diseases of the circulatory system